=== PATIENT | female | born 1985 | race Caucasian/White ===

== ENCOUNTER 2016-10-22 01:21 | Inpatient (IN) | payer BC ==
[2016-10-22] MEDS ORDERED: Lidocaine 1% 50 ML MDV INJECT PRN (01:37)
[2016-10-22] MEDS ORDERED: Butorphanol 1 MG/ML SDV IVPUSH PRN (01:37)
[2016-10-22] MEDS ORDERED: Sodium Chloride 0.9% 2.5 ML Syringe FLUSH PRN (01:37)
[2016-10-22] MEDS ORDERED: Nalbuphine 10 MG/1 ML Vial IVPUSH PRN ×2 (01:37→08:06)
[2016-10-22] MEDS ORDERED: Water For Irrigation,Sterile 1,000 ML Container IRR PRN (01:37)
[2016-10-22] MEDS ORDERED: Carboprost Tromethamine 250 MCG/1 ML Amp IM PRN (01:37)
[2016-10-22] MEDS ORDERED: Methylergonovine 0.2 MG/1 ML Amp IM PRN (01:37)
[2016-10-22] MEDS ORDERED: Ampicillin 2 GM in Sodium Chloride 0.9% 100 ML IV ONE (01:37)
[2016-10-22] MEDS ORDERED: Sodium Chloride 0.9% 10 ML Syringe FLUSH PRN (01:37)
[2016-10-22] MEDS ORDERED: Misoprostol 200 MCG Tab PO PRN (01:37)
[2016-10-22] MEDS ORDERED: Oxytocin/Lactated Ringers 30 UNIT/500 ML BAG IV SCH (01:45)
[2016-10-22] MEDS: Lactated Ringers 1,000 ML IV SCH ×5 (01:58→18:28)
[2016-10-22] MEDS ORDERED: fentaNYL 100 MCG/2 ML SDV ONE ×3 (02:09→07:38)
[2016-10-22] MEDS ORDERED: Ropivacaine HCl/PF 100 ML ONE (02:09)
--- NOTE | 2016-10-22 02:09 | PCM.PREANE ---
Preanesthetic Assessment - Procedure Proposed Procedure: Epidural Placement - Anesthesia/Transfusion/Family Hx Anesthesia History: No Prior Anesthesia - Review of Systems General: No Symptoms Pulmonary: No Symptoms Cardiovascular: No Symptoms Gastrointestinal: No Symptoms Neurological: No Symptoms Other: Reports: None - Physical Assessment Height: 1.73 m Weight: 86.183 kg ASA Class: 1 Mental Status: Alert & Oriented x3 Dentition: Reports: Normal Dentition ROM/Head Extension: Full Lungs: Clear to Auscultation, Normal Respiratory Effort Cardiovascular: Regular Rate, Regular Rhythm - Allergies Allergies/Adverse Reactions: Allergies Allergy/AdvReac Type Severity Reaction Status Date / Time hydrocodone Allergy Vomiting Verified 10/19/16 04:00 - Acknowledgements Anesthesia Type Planned: Epidural Pt an Appropriate Candidate for the Planned Anesthesia: Yes Alternatives and Risks of Anesthesia Discussed w Pt/Guardian: Yes Pt/Guardian Understands and Agrees with Anesthesia Plan: Yes PreAnesthesia Questionnaire Respiratory History: Reports: Other (See Below) (Reactive airway disease) - CURRENT (IN HOUSE) MEDS Current Meds: Current Medications Butorphanol Tartrate (Stadol) 1 mg IVPUSH Q1H PRN PRN Reason: Pain Carboprost Tromethamine (Hemabate Ds) 250 mcg IM ASDIRECTED PRN PRN Reason: Post Hemorrhage Ampicillin Sodium 1 gm/ Sodium (Chloride) 50 mls @ 100 mls/hr IV Q4H [facility] Lactated Ringer's (Ringers, Lactated) 1,000 mls @ 150 mls/hr IV ASDIRECTED [facility] Last Admin: 10/22/16 01:58 Dose: 150 mls/hr Oxytocin/Lactated Ringer's (Pitocin In Lr 30 Units/500 Ml) 30 unit in 500 mls @ 500 mls/hr IV TITRATE [facility] PRN Reason: 500 MUNITS/MIN Stop: 10/22/16 02:44 Lidocaine HCl (Xylocaine 1%) 50 ml INJECT .ONCE PRN PRN Reason: Laceration repair Methylergonovine Maleate (Methergine) 0.2 mg IM ASDIRECTED PRN PRN Reason: Post Hemorrhage Misoprostol (Cytotec) 200 mcg PO .ONCE PRN PRN Reason: Post Hemorrhage Nalbuphine HCl (Nubain) 10 mg IVPUSH Q1H PRN PRN Reason: Pain (severe 7-10) Stop: 10/22/16 03:38 Sodium Chloride (Saline Flush) 10 ml FLUSH ASDIRECTED PRN PRN Reason: Keep Vein Open Sodium Chloride (Saline Flush) 2.5 ml FLUSH ASDIRECTED PRN PRN Reason: Keep Vein Open Sterile Water (Sterile Water For Irrigation) 1,000 ml IRR ASDIRECTED PRN PRN Reason: delivery Discontinued Medications Ampicillin Sodium 2 gm/ Sodium (Chloride) 100 mls @ 200 mls/hr IV ONETIME ONE Stop: 10/22/16 02:06 Last Admin: 10/22/16 01:58 Dose: 200 mls/hr
--- NOTE | 2016-10-22 02:33 | PCM.LDHP ---
L&D History of Present Illness - General Date of Service: 10/22/16 Admit Problem/Dx: Patient Status Order with Admit Dx/Problem 10/22/16 01:37 Patient Status [ADT] Routine Admission Diagnosis/Problem Admission Diagnosis/Problem Source of Information: Patient History Limitations: Reports: No Limitations - History of Present Illness Improves with: Reports: None Worsens with: Reports: None Associated Symptoms: Reports: N - Related Data Allergies/Adverse Reactions: Allergies Allergy/AdvReac Type Severity Reaction Status Date / Time hydrocodone Allergy Vomiting Verified 10/19/16 04:00 Past Medical History Respiratory History: Reports: Other (See Below) (Reactive airway disease) H&P Review of Systems - Review of Systems: Review Of Systems: See Below General: Reports: No Symptoms HEENT: Reports: No Symptoms Pulmonary: Reports: No Symptoms Cardiovascular: Reports: No Symptoms Gastrointestinal: Reports: No Symptoms Genitourinary: Reports: No Symptoms Musculoskeletal: Reports: No Symptoms Skin: Reports: No Symptoms Psychiatric: Reports: No Symptoms Neurological: Reports: No Symptoms Hematologic/Lymphatic: Reports: No Symptoms Immunologic: Reports: No Symptoms L&D Exam - Exam Exam: See Below - Vital Signs Weight: 86.183 kg - OB Specific Fundal Height In cm: 40 Contraction Intensity: Moderate to Strong Movement: Active Heart Tones: Present Presentation: Vertex - Kumar Score Kumar Score Cervix Position: Anterior Kumar Score Effacement: >80% Kumar Score Dilation: > 5 cm Kumar Score 's Station: -1 ,0 - Exam General: Alert, Oriented HEENT: PERRLA, Conjunctiva Clear, EACs Clear, EOMI, Hearing Intact, Mucosa Moist & [place], Nares Patent, Normal Nasal Septum, Posterior Pharynx Clear, TMs Clear Neck: Supple, Trachea Midline Lungs: Clear to Auscultation, Normal Respiratory Effort Cardiovascular: Regular Rate, Regular Rhythm GI/Abdominal Exam: Normal Bowel Sounds, Soft, Non-Tender, No Organomegaly, No Distention, No Abnormal Bruit, No Mass, Pelvis Stable Rectal Exam: Normal Exam, Normal Rectal Tone Genitourinary: Normal external exam, Normal bimanual exam, Normal speculum exam Back Exam: Normal Inspection, Full Range of Motion Extremities: Normal Inspection, Normal Range of Motion, Non-Tender, No Pedal Edema, Normal Capillary Refill Skin: Warm, Dry, Intact Neurological: Cranial Nerves Intact, Reflexes Equal Bilateral Psychiatric: Alert, Normal Affect, Normal Mood - Patient Data Lab Results Last 24 hrs: Laboratory Results - last 24 hr 10/22/16 Range/Units 01:40 WBC 25.78 H (4.0-11.0) K/uL RBC 3.97 L (4.30-5.90) M/uL Hgb 12.0 (12.0-16.0) g/dL Hct 34.7 L (36.0-46.0) % MCV 87.4 (80.0-98.0) fL MCH 30.2 (27.0-32.0) pg MCHC 34.6 (31.0-37.0) g/dL RDW Std Deviation 40.4 (28.0-62.0) fl RDW Coeff of Carol 13 (11.0-15.0) % Plt Count 222 (150-400) K/uL MPV 10.40 (7.40-12.00) fL Add Manual Diff YES Neutrophils % (Manual) 90 H (48.0-80.0) % Band Neutrophils % 2 % Lymphocytes % (Manual) 3 L (16.0-40.0) % Monocytes % (Manual) 5 (0.0-15.0) % Absolute Seg Neuts 23.2 Band Neutrophils # 0.5 Lymphocytes # (Manual) 0.8 Monocytes # (Manual) 1.3 Result Diagrams: 10/22/16 01:40 Problem List Initiated/Reviewed/Updated: Yes Orders Last 24hrs: Active Orders 24 hr Category Date Time Status Patient Status [ADT] Routine ADT 10/22/16 01:37 Active Heart Tones [RC] CONTINUOUS Care 10/22/16 01:37 Active Non Stress Test [RC] PER UNIT ROUTINE Care 10/22/16 01:37 Active May Shower [RC] ASDIRECTED Care 10/22/16 01:37 Active Notify Provider [RC] PRN Care 10/22/16 01:37 Active Up ad Emelia [RC] ASDIRECTED Care 10/22/16 01:37 Active Vaginal Exam [RC] PRN Care 10/22/16 01:37 Active Vital Signs [RC] PER UNIT ROUTINE Care 10/22/16 01:37 Active TYPE AND SCREEN [BBK] Stat Lab 10/22/16 Ordered Ampicillin 1 gm Med 10/22/16 06:00 Active Sodium Chloride 0.9% [Normal Saline] 50 ml IV Q4H Butorphanol [Stadol] Med 10/22/16 01:37 Active 1 mg IVPUSH Q1H PRN Carboprost Tromethamine [Hemabate DS] Med 10/22/16 01:37 Active 250 mcg IM ASDIRECTED PRN Lactated Ringers [Ringers, Lactated] 1,000 ml Med 10/22/16 01:45 Active IV ASDIRECTED Lidocaine 1% [Xylocaine 1%] Med 10/22/16 01:37 Active 50 ml INJECT .ONCE PRN Methylergonovine [Methergine] Med 10/22/16 01:37 Active 0.2 mg IM ASDIRECTED PRN Misoprostol [Cytotec] Med 10/22/16 01:37 Active 200 mcg PO .ONCE PRN Nalbuphine [Nubain] Med 10/22/16 01:37 Active 10 mg IVPUSH Q1H PRN Oxytocin/Lactated Ringers [Pitocin in LR 30 Units/500 Med 10/22/16 01:45 Active ML] 30 unit in 500 ml IV TITRATE Sodium Chloride 0.9% [Saline Flush] Med 10/22/16 01:37 Active 10 ml FLUSH ASDIRECTED PRN Sodium Chloride 0.9% [Saline Flush] Med 10/22/16 01:37 Active 2.5 ml FLUSH ASDIRECTED PRN Water For Irrigation,Sterile [Sterile Water for Med 10/22/16 01:37 Active Irrigation] 1,000 ml IRR ASDIRECTED PRN Scalp Electrode [WOMSER] Per Unit Routine Oth 10/22/16 01:37 Ordered Peripheral IV Insertion Adult [OM.PC] Routine Oth 10/22/16 01:37 Ordered Resuscitation Status Routine Resus Stat 10/22/16 01:37 Ordered Medication Orders Butorphanol Tartrate (Stadol) 1 mg IVPUSH Q1H PRN PRN Reason: Pain Carboprost Tromethamine (Hemabate Ds) 250 mcg IM ASDIRECTED PRN PRN Reason: Post Hemorrhage Ampicillin Sodium 1 gm/ Sodium (Chloride) 50 mls @ 100 mls/hr IV Q4H [facility] Lactated Ringer's (Ringers, Lactated) 1,000 mls @ 150 mls/hr IV ASDIRECTED [facility] Last Admin: 10/22/16 01:58 Dose: 150 mls/hr Oxytocin/Lactated Ringer's (Pitocin In Lr 30 Units/500 Ml) 30 unit in 500 mls @ 500 mls/hr IV TITRATE [facility] PRN Reason: 500 MUNITS/MIN Stop: 10/22/16 02:44 Lidocaine HCl (Xylocaine 1%) 50 ml INJECT .ONCE PRN PRN Reason: Laceration repair Methylergonovine Maleate (Methergine) 0.2 mg IM ASDIRECTED PRN PRN Reason: Post Hemorrhage Misoprostol (Cytotec) 200 mcg PO .ONCE PRN PRN Reason: Post Hemorrhage Nalbuphine HCl (Nubain) 10 mg IVPUSH Q1H PRN PRN Reason: Pain (severe 7-10) Stop: 10/22/16 03:38 Sodium Chloride (Saline Flush) 10 ml FLUSH ASDIRECTED PRN PRN Reason: Keep Vein Open Sodium Chloride (Saline Flush) 2.5 ml FLUSH ASDIRECTED PRN PRN Reason: Keep Vein Open Sterile Water (Sterile Water For Irrigation) 1,000 ml IRR ASDIRECTED PRN PRN Reason: delivery Assessment/Plan Comment:: Pt have limted prnatal care. she was fellowed by kaylah bolt threader and plannig home delivery .EDC 10/17/16. start laboring on 10/20/16 at 7pm, SROM at midnight at 11.40 of 10/20/16 clear fluid. acording to her bolt threader she start pushing at 5 pm of 10/21/16. CX. 8-9/90/v/-3 the pt in saver pain. Plan to admit, start the pt on antibiotic and after epidural anethesia we will ass the pt farther.
[2016-10-22] MEDS: Ampicillin 1 GM in Sodium Chloride 0.9% 50 ML IV SCH ×3 (06:00→21:54)
[2016-10-22] MEDS ORDERED: Bupivacaine 0.5% 10 ML SDV ONE (06:55)
[2016-10-22] MEDS ORDERED: Citric Acid/Sodium Citrate Solution 30 ML Cup ONE (07:01)
[2016-10-22] MEDS ORDERED: Oxytocin 10 Units/1 ML SDV ONE (07:20)
[2016-10-22] MEDS ORDERED: Ondansetron 4 MG/2 ML SDV ONE (07:20)
[2016-10-22] MEDS ORDERED: Morphine PF 10 MG/10 ML SDV ONE (07:21)
[2016-10-22] MEDS ORDERED: Metoclopramide 10 MG/2 ML SDV ONE (07:27)
[2016-10-22] MEDS ORDERED: ePHEDrine 50 MG/ML SDV ONE (07:28)
[2016-10-22] MEDS ORDERED: Water For Injection, Sterile 20 ML ONE (07:28)
[2016-10-22] MEDS ORDERED: Octyl 2-Cyanoacrylate 1 Tube ONE (07:52)
[2016-10-22] MEDS ORDERED: diphenhydrAMINE 50 MG/ML SDV IVPUSH PRN ×2 (07:55→08:06)
[2016-10-22] MEDS ORDERED: Bisacodyl 10 MG Supp RECTAL PRN (07:55)
[2016-10-22] MEDS ORDERED: Lanolin 100% Cream 7 GM Tube TOP PRN (07:55)
[2016-10-22] MEDS ORDERED: Acetaminophen/oxyCODONE 325-5 MG Tab PO PRN ×2 (07:55)
[2016-10-22] MEDS ORDERED: Ondansetron 4 MG/2 ML SDV IV PRN (07:55)
--- NOTE | 2016-10-22 07:59 | PCM.OPNOTE ---
- General Post-Op/Procedure Note Date of Surgery/Procedure: 10/22/16 Operative Procedure(s): Primary C/Section Pre Op Diagnosis: Term Falire to progress Post-Op Diagnosis: Same Anesthesia Technique: Epidural Primary Surgeon: Ta Arevalo EBL in mLs: 700 Complications: None Condition: Good
[2016-10-22] MEDS ORDERED: Naloxone 0.4 MG/ML Syringe IVPUSH PRN (08:06)
[2016-10-22] MEDS: Ketorolac 30 MG/ML SDV IVPUSH SCH ×3 (08:15→20:01)
--- NOTE | 2016-10-22 08:28 | PCM.POSTAN ---
POST ANESTHESIA ASSESSMENT - MENTAL STATUS Mental Status: Alert, Oriented - RESPIRATORY Respiratory Status: Respiratory Rate WNL, Airway Patent, O2 Saturation Stable - CARDIOVASCULAR CV Status: Pulse Rate WNL, Blood Pressure Stable - GASTROINTESTINAL GI Status: No Symptoms - PAIN Pain Score: 0 - POST OP HYDRATION Hydration Status: Adequate & Stable
--- NOTE | 2016-10-22 09:43 | OR ---
SURGEON: Ta Arevalo MD DATE OF PROCEDURE: 10/22/2016 PREOPERATIVE DIAGNOSIS: Term , failure to progress. POSTOPERATIVE DIAGNOSIS: Term , failure to progress. OPERATION PERFORMED: Primary low transverse section. ACCESS SERVICES LIBRARIAN: OR tech. ANESTHESIA: Epidural, Robert Valdez and Dr. Miguel. ESTIMATED BLOOD LOSS: 700 mL. COMPLICATION: None. FINDINGS: Male fetus. score reported to be 8 and 9. The weight is not available. INDICATION: This patient is 31, she is primigravida, and she had a very limited care. She started with Dr. Peacock in [facility] until 20 weeks and then she started using a playground supervisor. The patient supposedly is to be due on October 17, 2016. She started labor on October 20, 2016. By the time she transferred or she arrived to the hospital with her playground supervisor, she has been in labor for 24 hours, and she was agitated, in severe pain, and she had a prolong rupture membrane in excess of 20 hours. The patient's GBS status is unknown. Upon monitoring, she had regular contractions. heart rate was category 1. She was dilated to 8 cm with a swollen cervix. She has vertex presentation, -3, she had epidural anesthesia, and then the patient would like to labor down try to see if she can achieve a vaginal delivery. I started her on antibiotic and after trial for about 3 to 4 hours, the patient is continued to be in the same position, same dilatation without any descent, a possibility of CPD due to macrosomia is ascertained at this time and a decision made to do a primary low transverse section. PROCEDURE IN DETAIL: The patient was brought to the OR, properly identified. After adequate level of epidural anesthesia, with a Vásquez catheter in the bladder, the patient was prepped and draped in sterile fashion as usual. Low transverse Pfannenstiel skin incision done, Vera's fascia and rectus fascia was opened in direction of the incision. The 2 recti muscles were and peritoneal cavity was entered. Bladder flap was raised in the usual manner pushing the bladder away from the lower uterine segment, low transverse uterine incision done and extended manually with the hand and the fetus was in the vertex presentation and delivered without any problem. The fetus cried immediately. The telegraphic typewriter repairer attended the delivery, Dr. Hurtado, and the score later on reported to be 8 and 9. The placenta delivered spontaneous, complete, and intact and then repair of the lower uterine segment done with 2-0 Vicryl continuous interlocking in 2 layers. Reperitonealization done with 3-0 Vicryl continuous. The peritoneal cavity evacuated completely from all blood and blood clot and closed with 3-0 Vicryl continuous. Then, the rectus fascia was closed with #1 PDS double strand continuous. The Vera's fascia was then closed with 3-0 Vicryl continuous, the skin closed with Insorb stapler and Dermabond. Instrument and sponge count was correct. The patient tolerated the procedure well and went to recovery room in stable general condition. YORDAN / BOLIVAR /[id number]
[2016-10-22] MEDS ORDERED: Diphtheria,Pertussis(Acell),Tetanus Vaccine 0.5 ML Syringe IM ONE (12:00)
[2016-10-22] MEDS: Acetaminophen 1,000 MG in Premix Bag 1 BAG IV SCH ×2 (12:23→18:06)
--- NOTE | 2016-10-22 14:04 | PCM.SN ---
- Free Text/Narrative Note: This morning the patient informed nursing that she is allergic to hydrocodone and oxycodone. The patient believe her reaction to be severe N/V to both of these medications and had some concerns as what she could have for pain. She is currently receiving scheduled Toradol, I have added scheduled Ofirmev 1000mgIV x 2 scheduled doses, and I had nursing give the patient Nubain 5mg IV x 1 earlier for breakthrough pain which she said decreased her pain level significantly. I will have nursing continue Toradol and Ofirmev (x1 more dose) and then will switch to Fentanyl PRN should she require additional pain relief.
[2016-10-22] MEDS: Docusate Sodium 100 MG Cap PO SCH ×2 (20:01→21:55)
[2016-10-23] MEDS: Ketorolac 30 MG/ML SDV IVPUSH SCH ×2 (02:05→08:07)
--- NOTE | 2016-10-23 07:05 | PCM48HPAN ---
Post Anesthesia Note - EVALUATION WITHIN 48HRS OF ANESTHETIC Vital Signs in Normal Range: Yes Patient Participated in Evaluation: Yes Respiratory Function Stable: Yes Airway Patent: Yes Cardiovascular Function Stable: Yes Hydration Status Stable: Yes Pain Control Satisfactory: Yes Nausea and Vomiting Control Satisfactory: Yes Mental Status Recovered: Yes
[2016-10-23] MEDS: Docusate Sodium 100 MG Cap PO SCH ×2 (08:14→20:11)
--- NOTE | 2016-10-23 09:40 | PCM.PNPP ---
- General Info Date of Service: 10/23/16 Functional Status: Reports: Pain Controlled - Review of Systems General: Reports: No Symptoms HEENT: Reports: No Symptoms Pulmonary: Reports: No Symptoms Cardiovascular: Reports: No Symptoms Gastrointestinal: Reports: No Symptoms Genitourinary: Reports: No Symptoms Musculoskeletal: Reports: No Symptoms Skin: Reports: No Symptoms Neurological: Reports: No Symptoms Psychiatric: Reports: No Symptoms - General Info Date of Service: 10/23/16 - Patient Data Vital Signs - Most Recent: Last Vital Signs Temp 36.4 C 10/23/16 07:36 Pulse 86 10/23/16 07:36 Resp 14 10/23/16 07:36 BP 121/74 10/23/16 07:36 Pulse Ox 95 10/23/16 07:36 Weight - Most Recent: 86.183 kg I&O - Last 24 Hours: Intake & Output 10/22/16 10/23/16 10/23/16 22:59 06:59 14:59 Intake Total 1275 1000 Output Total 950 3200 Balance 325 -2200 Lab Results - Last 24 Hours: Laboratory Results - last 24 hr 10/22/16 10/23/16 Range/Units 10:12 04:40 Hgb 8.8 L (12.0-16.0) g/dL Hct 26.8 L (36.0-46.0) % POC Glucose 97 (60-110) mg/dL Med Orders - Current: Current Medications Bisacodyl (Dulcolax) 10 mg RECTAL .ONCE PRN PRN Reason: Constipation Butorphanol Tartrate (Stadol) 1 mg IVPUSH Q1H PRN PRN Reason: Pain Carboprost Tromethamine (Hemabate Ds) 250 mcg IM ASDIRECTED PRN PRN Reason: Post Hemorrhage Diphenhydramine HCl (Benadryl) 25 mg IVPUSH Q6H PRN PRN Reason: Itching or Nausea Docusate Sodium (Colace) 100 mg PO BID [facility] Last Admin: 10/23/16 08:14 Dose: 100 mg Emollient Ointment (Lansinoh Hpa) 0 gm TOP ASDIRECTED PRN PRN Reason: Sore Nipples Lactated Ringer's (Ringers, Lactated) 1,000 mls @ 150 mls/hr IV ASDIRECTED [facility] Last Admin: 10/22/16 06:00 Dose: 150 mls/hr Lactated Ringer's (Ringers, Lactated) 1,000 mls @ 125 mls/hr IV ASDIRECTED [facility] Last Admin: 10/22/16 18:28 Dose: 125 mls/hr Ibuprofen (Motrin) 800 mg PO Q8H PRN PRN Reason: mild pain or fever Lidocaine HCl (Xylocaine 1%) 50 ml INJECT .ONCE PRN PRN Reason: Laceration repair Methylergonovine Maleate (Methergine) 0.2 mg IM ASDIRECTED PRN PRN Reason: Post Hemorrhage Misoprostol (Cytotec) 200 mcg PO .ONCE PRN PRN Reason: Post Hemorrhage Ondansetron HCl (Zofran) 4 mg IV Q4H PRN PRN Reason: Nausea/Vomiting Last Admin: 10/22/16 14:22 Dose: 4 mg Oxycodone/Acetaminophen (Percocet 325-5 Mg) 1 tab PO Q4H PRN PRN Reason: Pain (moderate 4-6) Oxycodone/Acetaminophen (Percocet 325-5 Mg) 2 tab PO Q4H PRN PRN Reason: Pain (moderate 4-6) Sodium Chloride (Saline Flush) 10 ml FLUSH ASDIRECTED PRN PRN Reason: Keep Vein Open Sodium Chloride (Saline Flush) 2.5 ml FLUSH ASDIRECTED PRN PRN Reason: Keep Vein Open Sterile Water (Sterile Water For Irrigation) 1,000 ml IRR ASDIRECTED PRN PRN Reason: delivery Discontinued Medications Bupivacaine HCl (Sensorcaine-Mpf 0.5%) Confirm Administered Dose 20 ml .ROUTE .STK-MED ONE Stop: 10/22/16 06:56 Last Admin: 10/22/16 21:53 Dose: Not Given Citric Acid/Sodium Citrate (Bicitra Solution) Confirm Administered Dose 30 ml .ROUTE .STK-MED ONE Stop: 10/22/16 07:02 Last Admin: 10/22/16 07:05 Dose: 30 ml Diphenhydramine HCl (Benadryl) 25 mg IVPUSH Q4H PRN PRN Reason: Itching Stop: 10/23/16 08:06 Diphtheria/Tetanus/Acell Pertussis (Adacel) 0.5 ml IM .ONCE ONE Stop: 10/22/16 12:01 Ephedrine Sulfate (Ephedrine Sulfate) Confirm Administered Dose 50 mg .ROUTE .STK-MED ONE Stop: 10/22/16 07:29 Fentanyl (Sublimaze) Confirm Administered Dose 100 mcg .ROUTE .STK-MED ONE Stop: 10/22/16 02:10 Last Admin: 10/22/16 04:08 Dose: Not Given Fentanyl (Sublimaze) Confirm Administered Dose 100 mcg .ROUTE .STK-MED ONE Stop: 10/22/16 07:35 Fentanyl (Sublimaze) Confirm Administered Dose 100 mcg .ROUTE .STK-MED ONE Stop: 10/22/16 07:39 Ampicillin Sodium 2 gm/ Sodium (Chloride) 100 mls @ 200 mls/hr IV ONETIME ONE Stop: 10/22/16 02:06 Last Admin: 10/22/16 01:58 Dose: 200 mls/hr Ampicillin Sodium 1 gm/ Sodium (Chloride) 50 mls @ 100 mls/hr IV Q4H [facility] Last Admin: 10/22/16 21:54 Dose: Not Given Oxytocin/Lactated Ringer's (Pitocin In Lr 30 Units/500 Ml) 30 unit in 500 mls @ 500 mls/hr IV TITRATE [facility] PRN Reason: 500 MUNITS/MIN Stop: 10/22/16 02:44 Last Admin: 10/22/16 21:53 Dose: Not Given Ropivacaine (Naropin 0.2%) Confirm Administered Dose 100 mls @ as directed .ROUTE .STK-MED ONE Stop: 10/22/16 02:10 Last Admin: 10/22/16 04:08 Dose: Not Given Sterile Water (Sterile Water For Injection) Confirm Administered Dose 20 mls @ as directed .ROUTE .STK-MED ONE Stop: 10/22/16 07:29 Acetaminophen 1,000 mg/ Premix 100 mls @ 400 mls/hr IV Q6H [facility] Stop: 10/22/16 18:14 Last Admin: 10/22/16 18:06 Dose: 400 mls/hr Ketorolac Tromethamine (Toradol) 30 mg IVPUSH Q6H [facility] Stop: 10/23/16 08:01 Last Admin: 10/23/16 08:07 Dose: 30 mg Metoclopramide HCl (Reglan) Confirm Administered Dose 10 mg .ROUTE .STK-MED ONE Stop: 10/22/16 07:28 Morphine Sulfate (Duramorph Pf) Confirm Administered Dose 10 mg .ROUTE .STK-MED ONE Stop: 10/22/16 07:22 Nalbuphine HCl (Nubain) 10 mg IVPUSH Q1H PRN PRN Reason: Pain (severe 7-10) Stop: 10/22/16 03:38 Nalbuphine HCl (Nubain) 5 mg IVPUSH Q3H PRN PRN Reason: Pruritis Stop: 10/23/16 08:06 Last Admin: 10/23/16 02:33 Dose: 5 mg Naloxone HCl (Narcan) 0.1 mg IVPUSH ONETIME PRN PRN Reason: Respiratory Depression Stop: 10/23/16 08:06 Octyl Cyanoacrylate (Dermabond Advance) Confirm Administered Dose 1 applic .ROUTE .STK-MED ONE Stop: 10/22/16 07:53 Ondansetron HCl (Zofran) Confirm Administered Dose 4 mg .ROUTE .STK-MED ONE Stop: 10/22/16 07:21 Oxytocin (Pitocin) Confirm Administered Dose 20 unit .ROUTE .STK-MED ONE Stop: 10/22/16 07:21 - Infant Interaction Infant Disposition, : in Room with Family Interaction: Holding Feeding: Attempted ; Nursed Fair/Poor Support Person: , Mother - Recovery Exam Fundal Tone: Firm Fundal Level: 1 Fingerbreadths Below Umbilicus Fundal Placement: Midline Lochia Amount: Scant Lochia Color: Rubra/Red Perineum Description: Intact, Minimal Bruising/Swelling Bladder Status: Indwelling Catheter in Place Urinary Elimination: Indwelling Catheter - Exam General: Alert, Oriented HEENT: Pupils Equal Neck: Supple Lungs: Clear to Auscultation, Normal Respiratory Effort Cardiovascular: Regular Rate, Regular Rhythm GI/Abdominal Exam: Normal Bowel Sounds, Soft, Non-Tender, No Organomegaly, No Distention, No Abnormal Bruit, No Mass, Pelvis Stable Extremities: Normal Inspection, Normal Range of Motion, Non-Tender, No Pedal Edema, Normal Capillary Refill Skin: Warm, Dry, Intact Wound/Incisions: Healing Well Neurological: No New Focal Deficit Psy/Mental Status: Alert, Normal Affect, Normal Mood - Problem List Review Problem List Initiated/Reviewed/Updated: Yes - My Orders Last 24 Hours: My Active Orders 10/22/16 09:00 Docusate Sodium [Colace] 100 mg PO BID 10/22/16 Dinner Regular Diet [DIET] 10/23/16 14:00 Ibuprofen [Motrin] 800 mg PO Q8H PRN - Assessment Assessment:: S/P C/section doing well - Plan Plan:: Pt have limted prnatal care. she was fellowed by kaylah agent ticketing gate and plannig home delivery .EDC 10/17/16. start laboring on 10/20/16 at 7pm, SROM at midnight at 11.40 of 10/20/16 clear fluid. acording to her agent ticketing gate she start pushing at 5 pm of 10/21/16. CX. 8-9/90/v/-3 the pt in saver pain. Plan to admit, start the pt on antibiotic and after epidural anethesia we will ass the pt farther.
[2016-10-23] MEDS: Ibuprofen 800 MG Tab PO PRN ×2 (14:11→22:09)
[2016-10-23] MEDS: Acetaminophen 500 MG Tab PO PRN (20:30)
[2016-10-24] MEDS: Acetaminophen 500 MG Tab PO PRN ×2 (02:00→08:05)
[2016-10-24] MEDS: Ibuprofen 800 MG Tab PO PRN (06:23)
[2016-10-24] MEDS: Docusate Sodium 100 MG Cap PO SCH (08:07)
--- NOTE | 2016-10-24 09:27 | PCM.PNPP ---
- General Info Date of Service: 10/24/16 Functional Status: Reports: Pain Controlled - Review of Systems General: Reports: No Symptoms HEENT: Reports: No Symptoms Pulmonary: Reports: No Symptoms Cardiovascular: Reports: No Symptoms Gastrointestinal: Reports: No Symptoms Genitourinary: Reports: No Symptoms Musculoskeletal: Reports: No Symptoms Skin: Reports: No Symptoms Neurological: Reports: No Symptoms Psychiatric: Reports: No Symptoms - General Info Date of Service: 10/24/16 - Patient Data Vital Signs - Most Recent: Last Vital Signs Temp 36.9 C 10/24/16 07:45 Pulse 70 10/24/16 07:45 Resp 16 10/24/16 07:45 BP 127/74 10/24/16 07:45 Pulse Ox 98 10/24/16 07:45 Weight - Most Recent: 86.183 kg Med Orders - Current: Current Medications Acetaminophen (Tylenol Extra Strength) 1,000 mg PO Q6H PRN PRN Reason: Pain (moderate 4-6) Last Admin: 10/24/16 08:05 Dose: 1,000 mg Bisacodyl (Dulcolax) 10 mg RECTAL .ONCE PRN PRN Reason: Constipation Butorphanol Tartrate (Stadol) 1 mg IVPUSH Q1H PRN PRN Reason: Pain Carboprost Tromethamine (Hemabate Ds) 250 mcg IM ASDIRECTED PRN PRN Reason: Post Hemorrhage Diphenhydramine HCl (Benadryl) 25 mg IVPUSH Q6H PRN PRN Reason: Itching or Nausea Docusate Sodium (Colace) 100 mg PO BID [facility] Last Admin: 10/24/16 08:07 Dose: 100 mg Emollient Ointment (Lansinoh Hpa) 0 gm TOP ASDIRECTED PRN PRN Reason: Sore Nipples Last Admin: 10/24/16 01:58 Dose: 1 gm Lactated Ringer's (Ringers, Lactated) 1,000 mls @ 150 mls/hr IV ASDIRECTED [facility] Last Admin: 10/22/16 06:00 Dose: 150 mls/hr Lactated Ringer's (Ringers, Lactated) 1,000 mls @ 125 mls/hr IV ASDIRECTED [facility] Last Admin: 10/22/16 18:28 Dose: 125 mls/hr Ibuprofen (Motrin) 800 mg PO Q8H PRN PRN Reason: mild pain or fever Last Admin: 10/24/16 06:23 Dose: 800 mg Lidocaine HCl (Xylocaine 1%) 50 ml INJECT .ONCE PRN PRN Reason: Laceration repair Methylergonovine Maleate (Methergine) 0.2 mg IM ASDIRECTED PRN PRN Reason: Post Hemorrhage Misoprostol (Cytotec) 200 mcg PO .ONCE PRN PRN Reason: Post Hemorrhage Ondansetron HCl (Zofran) 4 mg IV Q4H PRN PRN Reason: Nausea/Vomiting Last Admin: 10/22/16 14:22 Dose: 4 mg Oxycodone/Acetaminophen (Percocet 325-5 Mg) 1 tab PO Q4H PRN PRN Reason: Pain (moderate 4-6) Oxycodone/Acetaminophen (Percocet 325-5 Mg) 2 tab PO Q4H PRN PRN Reason: Pain (moderate 4-6) Sodium Chloride (Saline Flush) 10 ml FLUSH ASDIRECTED PRN PRN Reason: Keep Vein Open Sodium Chloride (Saline Flush) 2.5 ml FLUSH ASDIRECTED PRN PRN Reason: Keep Vein Open Sterile Water (Sterile Water For Irrigation) 1,000 ml IRR ASDIRECTED PRN PRN Reason: delivery Discontinued Medications Bupivacaine HCl (Sensorcaine-Mpf 0.5%) Confirm Administered Dose 20 ml .ROUTE .STK-MED ONE Stop: 10/22/16 06:56 Last Admin: 10/22/16 21:53 Dose: Not Given Citric Acid/Sodium Citrate (Bicitra Solution) Confirm Administered Dose 30 ml .ROUTE .STK-MED ONE Stop: 10/22/16 07:02 Last Admin: 10/22/16 07:05 Dose: 30 ml Diphenhydramine HCl (Benadryl) 25 mg IVPUSH Q4H PRN PRN Reason: Itching Stop: 10/23/16 08:06 Diphtheria/Tetanus/Acell Pertussis (Adacel) 0.5 ml IM .ONCE ONE Stop: 10/22/16 12:01 Ephedrine Sulfate (Ephedrine Sulfate) Confirm Administered Dose 50 mg .ROUTE .STK-MED ONE Stop: 10/22/16 07:29 Fentanyl (Sublimaze) Confirm Administered Dose 100 mcg .ROUTE .STK-MED ONE Stop: 10/22/16 02:10 Last Admin: 10/22/16 04:08 Dose: Not Given Fentanyl (Sublimaze) Confirm Administered Dose 100 mcg .ROUTE .STK-MED ONE Stop: 10/22/16 07:35 Fentanyl (Sublimaze) Confirm Administered Dose 100 mcg .ROUTE .STK-MED ONE Stop: 10/22/16 07:39 Ampicillin Sodium 2 gm/ Sodium (Chloride) 100 mls @ 200 mls/hr IV ONETIME ONE Stop: 10/22/16 02:06 Last Admin: 10/22/16 01:58 Dose: 200 mls/hr Ampicillin Sodium 1 gm/ Sodium (Chloride) 50 mls @ 100 mls/hr IV Q4H [facility] Last Admin: 10/22/16 21:54 Dose: Not Given Oxytocin/Lactated Ringer's (Pitocin In Lr 30 Units/500 Ml) 30 unit in 500 mls @ 500 mls/hr IV TITRATE [facility] PRN Reason: 500 MUNITS/MIN Stop: 10/22/16 02:44 Last Admin: 10/22/16 21:53 Dose: Not Given Ropivacaine (Naropin 0.2%) Confirm Administered Dose 100 mls @ as directed .ROUTE .STK-MED ONE Stop: 10/22/16 02:10 Last Admin: 10/22/16 04:08 Dose: Not Given Sterile Water (Sterile Water For Injection) Confirm Administered Dose 20 mls @ as directed .ROUTE .STK-MED ONE Stop: 10/22/16 07:29 Acetaminophen 1,000 mg/ Premix 100 mls @ 400 mls/hr IV Q6H [facility] Stop: 10/22/16 18:14 Last Admin: 10/22/16 18:06 Dose: 400 mls/hr Ketorolac Tromethamine (Toradol) 30 mg IVPUSH Q6H [facility] Stop: 10/23/16 08:01 Last Admin: 10/23/16 08:07 Dose: 30 mg Metoclopramide HCl (Reglan) Confirm Administered Dose 10 mg .ROUTE .STK-MED ONE Stop: 10/22/16 07:28 Morphine Sulfate (Duramorph Pf) Confirm Administered Dose 10 mg .ROUTE .STK-MED ONE Stop: 10/22/16 07:22 Nalbuphine HCl (Nubain) 10 mg IVPUSH Q1H PRN PRN Reason: Pain (severe 7-10) Stop: 10/22/16 03:38 Nalbuphine HCl (Nubain) 5 mg IVPUSH Q3H PRN PRN Reason: Pruritis Stop: 10/23/16 08:06 Last Admin: 10/23/16 02:33 Dose: 5 mg Naloxone HCl (Narcan) 0.1 mg IVPUSH ONETIME PRN PRN Reason: Respiratory Depression Stop: 10/23/16 08:06 Octyl Cyanoacrylate (Dermabond Advance) Confirm Administered Dose 1 applic .ROUTE .STK-MED ONE Stop: 10/22/16 07:53 Ondansetron HCl (Zofran) Confirm Administered Dose 4 mg .ROUTE .STK-MED ONE Stop: 10/22/16 07:21 Oxytocin (Pitocin) Confirm Administered Dose 20 unit .ROUTE .STK-MED ONE Stop: 10/22/16 07:21 - Interaction Infant Disposition, : in Room with Family Infant Interaction: Holding Infant Infant Feeding: Attempted ; Nursed Fair/Poor Support Person: , Mother - Recovery Exam Fundal Tone: Firm Fundal Level: 1 Fingerbreadths Below Umbilicus Fundal Placement: Midline Lochia Amount: Scant Lochia Color: Rubra/Red Perineum Description: Intact, Minimal Bruising/Swelling Episiotomy/Laceration: None Bladder Status: Voiding Urinary Elimination: Voided - Exam General: Alert, Oriented HEENT: Pupils Equal Neck: Supple Lungs: Clear to Auscultation, Normal Respiratory Effort Cardiovascular: Regular Rate, Regular Rhythm GI/Abdominal Exam: Normal Bowel Sounds, Soft, Non-Tender, No Organomegaly, No Distention, No Abnormal Bruit, No Mass, Pelvis Stable Extremities: Normal Inspection, Normal Range of Motion, Non-Tender, No Pedal Edema, Normal Capillary Refill Skin: Warm, Dry, Intact Wound/Incisions: Healing Well Neurological: No New Focal Deficit Psy/Mental Status: Alert, Normal Affect, Normal Mood - Problem List Review Problem List Initiated/Reviewed/Updated: Yes - My Orders Last 24 Hours: My Active Orders 10/23/16 14:00 Ibuprofen [Motrin] 800 mg PO Q8H PRN 10/23/16 15:08 Acetaminophen [Tylenol Extra Strength] 1,000 mg PO Q6H PRN - Assessment Assessment:: S/P C/section doing well - Plan Plan:: Pt have limted prnatal care. she was fellowed by kaylah hedge fund trader and plannig home delivery .EDC 10/17/16. start laboring on 10/20/16 at 7pm, SROM at midnight at 11.40 of 10/20/16 clear fluid. acording to her hedge fund trader she start pushing at 5 pm of 10/21/16. CX. 8-9/90/v/-3 the pt in saver pain. Plan to admit, start the pt on antibiotic and after epidural anethesia we will ass the pt farther.
[2016-10-24] MEDS ORDERED: Diphtheria,Pertussis(Acell),Tetanus Vaccine 0.5 ML Syringe IM ONE (11:45)
[2016-10-24 14:46] VITALS: BP 124/72
== END 2016-10-24 14:40 | disposition home or self-care (01) | DRG 540 ==
LOC: MW.OBCHECK 01:21 → MW.OB 01:23 → MW.OBCHECK 01:37 → MW.OB 01:37 → OBSVTOIN 07:32 → MW.OB 11:08
PROVIDERS: ADMIT Obstetrics & Gynecology; ATTEND Obstetrics & Gynecology
PROC: 10D00Z1 Extraction of Products of Conception, Low, Open Approach (ICD-10-PCS; principal; 2016-10-22)
PROC: 00HU33Z Insertion of Infusion Device into Spinal Canal, Percutaneous Approach (ICD-10-PCS; 2016-10-22)
PROC: 3E0234Z Introduction of Serum, Toxoid and Vaccine into Muscle, Percutaneous Approach (ICD-10-PCS; 2016-10-24)
DX: O32.4XX0 Maternal care for high head at term, not applicable or unspecified (principal); O42.02 Full-term premature rupture of membranes, onset of labor within 24 hours of rupture; O09.33 Supervision of pregnancy with insufficient antenatal care, third trimester; Z3A.40 40 weeks gestation of pregnancy; Z37.0 Single live birth; Z23 Encounter for immunization; Z88.8 Allergy status to other drugs, medicaments and biological substances
CPT/HCPCS: 01967; 01968; 36415; 59025; 82962; 85014; 85018; 85025; 85027; 86850; 86900; 86901; 90715; A9270-GY; J0290; J1885; J2270; J2300; J2405; J2590; J2765; J2795; J3010; J7030; J7050; J7120

== ENCOUNTER 2018-12-13 05:14 | Inpatient (IN) | payer BC ==
[2018-12-13] MEDS ORDERED: ceFAZolin 2 GM in Premix Bag 1 BAG IV ONE (05:26)
[2018-12-13] MEDS ORDERED: Sodium Chloride 0.9% 2.5 ML Syringe FLUSH PRN (05:26)
[2018-12-13] MEDS ORDERED: Sodium Chloride 0.9% 10 ML Syringe FLUSH PRN (05:26)
[2018-12-13] MEDS ORDERED: Sodium Chloride 0.9% 10 ML SDV IV PRN (05:26)
[2018-12-13] MEDS ORDERED: Citric Acid/Sodium Citrate Solution 30 ML Cup PO ONE (05:26)
[2018-12-13] MEDS ORDERED: Oxytocin/0.9 % Sodium Chloride 30 UNIT/500 ML BAG IV SCH (05:30)
[2018-12-13] MEDS: Lactated Ringers 1,000 ML IV SCH ×3 (06:14→08:00)
[2018-12-13] MEDS ORDERED: Morphine PF 10 MG/10 ML SDV ONE (07:27)
[2018-12-13] MEDS ORDERED: Octyl 2-Cyanoacrylate 1 Tube ONE (07:33)
[2018-12-13] MEDS ORDERED: Oxytocin 10 Units/1 ML SDV ONE (07:53)
[2018-12-13] MEDS ORDERED: Phenylephrine/Normal Saline 100 MCG/ML 10 ML Syringe ONE (07:53)
[2018-12-13] MEDS ORDERED: Ondansetron 4 MG/2 ML SDV ONE (07:53)
[2018-12-13] MEDS ORDERED: ceFAZolin/Dextrose,Iso-Osmotic 2 GM/50 ML Duplex Bag IV ONE (07:54)
[2018-12-13] MEDS ORDERED: fentaNYL 100 MCG/2 ML SDV IVPUSH PRN (07:54)
[2018-12-13] MEDS ORDERED: Acetaminophen/oxyCODONE 325-5 MG Tab PO PRN (07:54)
--- NOTE | 2018-12-13 07:54 | PCM.PREANE ---
Preanesthetic Assessment - Anesthesia/Transfusion/Family Hx Anesthesia History: Prior Anesthesia Without Reaction Family History of Anesthesia Reaction: No Transfusion History: No Prior Transfusion(s) - Review of Systems General: No Symptoms Pulmonary: No Symptoms Cardiovascular: No Symptoms Gastrointestinal: No Symptoms Neurological: No Symptoms Other: Reports: None - Physical Assessment NPO Status Date: 12/12/18 Height: 5 ft 9 in Weight: 90.265 kg ASA Class: 2 Mental Status: Alert & Oriented x3 Airway Class: Mallampati = 2 Dentition: Reports: Normal Dentition ROM/Head Extension: Full Lungs: Clear to Auscultation, Normal Respiratory Effort Cardiovascular: Regular Rate, Regular Rhythm - Lab Values: Laboratory Last Values WBC 13.49 K/uL (4.0-11.0) H 12/13/18 06:12 RBC 4.19 M/uL (4.30-5.90) L 12/13/18 06:12 Hgb 12.2 g/dL (12.0-16.0) 12/13/18 06:12 Hct 37.4 % (36.0-46.0) 12/13/18 06:12 MCV 89.3 fL (80.0-98.0) 12/13/18 06:12 MCH 29.1 pg (27.0-32.0) 12/13/18 06:12 MCHC 32.6 g/dL (31.0-37.0) 12/13/18 06:12 RDW Std Deviation 44.2 fl (28.0-62.0) 12/13/18 06:12 RDW Coeff of Carol 14 % (11.0-15.0) 12/13/18 06:12 Plt Count 268 K/uL (150-400) 12/13/18 06:12 MPV 10.80 fL (7.40-12.00) 12/13/18 06:12 Nucleated RBC % 0.0 /100WBC 12/13/18 06:12 Nucleated RBCs # 0 K/uL 12/13/18 06:12 - Allergies Allergies/Adverse Reactions: Allergies Allergy/AdvReac Type Severity Reaction Status Date / Time hydrocodone Allergy Nausea and Verified 12/10/18 14:46 Vomiting oxycodone Allergy Nausea and Verified 12/10/18 14:46 Vomiting - Anesthesia Plan Pre-Op Medication Ordered: Antacids - Acknowledgements Anesthesia Type Planned: Spinal Pt an Appropriate Candidate for the Planned Anesthesia: Yes Alternatives and Risks of Anesthesia Discussed w Pt/Guardian: Yes Pt/Guardian Understands and Agrees with Anesthesia Plan: Yes Additional Comments: previous c section 2 yrs ago with labor epidural used for PLAN: spinal with duramorph PreAnesthesia Questionnaire HEENT History: Reports: None Cardiovascular History: Reports: None Respiratory History: Reports: Asthma, Other (See Below) Other Respiratory History: reactive airway disease, has prescribed inhaler Gastrointestinal History: Reports: Other (See Below) Other Gastrointestinal History: occasional heartburn with Genitourinary History: Reports: None 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: Musculoskeletal History: Reports: Fracture, RA Other Musculoskeletal History: hx fx wrist Neurological History: Reports: Migraines Psychiatric History: Reports: None Endocrine/Metabolic History: Reports: None Hematologic History: Reports: None Immunologic History: Reports: None Oncologic (Cancer) History: Reports: None Dermatologic History: Reports: None - Past Surgical History Head Surgeries/Procedures: Reports: None HEENT Surgical History: Reports: None Cardiovascular Surgical History: Reports: None Respiratory Surgical History: Reports: None GI Surgical History: Reports: None Female Surgical History: Reports: Section Endocrine Surgical History: Reports: None Neurological Surgical History: Reports: None Musculoskeletal Surgical History: Reports: Arthroscopic Knee, Other (See Below) Other Musculoskeletal Surgeries/Procedures:: knee arthroscopy Oncologic Surgical History: Reports: None Dermatological Surgical History: Reports: None - SUBSTANCE USE Smoking Status *Q: Never Smoker Recreational Drug Use History: No - HOME MEDS Home Medications: Home Meds Albuterol Sulfate [Albuterol Sulfate Hfa] 1 - 2 puff INH ASDIRECTED PRN [History] PNV95/Ferrous Fumarate/FA [ Vitamin Tablet] 1 tab PO DAILY 12/10/18 [ History] - CURRENT (IN HOUSE) MEDS Current Meds: Current Medications Lactated Ringer's (Ringers, Lactated) 1,000 mls @ 500 mls/hr IV BOLUS VALDO Last Admin: 12/13/18 06:55 Dose: 500 mls/hr Oxytocin/Sodium Chloride (Oxytocin 30 Unit/500 Ml-Ns) 30 unit in 500 mls @ 250 mls/hr IV TITRATE VALDO Sodium Chloride (Saline Flush) 10 ml FLUSH ASDIRECTED PRN PRN Reason: Keep Vein Open Sodium Chloride (Saline Flush) 2.5 ml FLUSH ASDIRECTED PRN PRN Reason: Keep Vein Open Sodium Chloride (Normal Saline) 10 ml IV ASDIRECTED PRN PRN Reason: IV Use Discontinued Medications Citric Acid/Sodium Citrate (Bicitra Solution) 30 ml PO ONETIME ONE Stop: 12/13/18 05:27 Cefazolin Sodium/Dextrose 2 gm (/ Premix) 50 mls @ 100 mls/hr IV ONETIME ONE Stop: 12/13/18 05:55 Morphine Sulfate (Duramorph Pf) Confirm Administered Dose 10 mg .ROUTE .STK-MED ONE Stop: 12/13/18 07:28 Octyl Cyanoacrylate (Dermabond Advance) Confirm Administered Dose 1 applic .ROUTE .STK-MED ONE Stop: 12/13/18 07:34
[2018-12-13] MEDS ORDERED: Nalbuphine 10 MG/1 ML Vial IVPUSH PRN (07:55)
[2018-12-13] MEDS ORDERED: Citric Acid/Sodium Citrate Solution 30 ML Cup ONE (07:58)
--- NOTE | 2018-12-13 08:01 | PCM.LDHP ---
L&D History of Present Illness - General Date of Service: 12/13/18 Admit Problem/Dx: Patient Status Order with Admit Dx/Problem 12/13/18 05:26 Patient Status [ADT] Routine Admission Diagnosis/Problem Admission Diagnosis/Problem Source of Information: Patient History Limitations: Reports: No Limitations - History of Present Illness Improves with: Reports: None Worsens with: Reports: None Associated Symptoms: Reports: N - Related Data Allergies/Adverse Reactions: Allergies Allergy/AdvReac Type Severity Reaction Status Date / Time hydrocodone Allergy Nausea and Verified 12/10/18 14:46 Vomiting oxycodone Allergy Nausea and Verified 12/10/18 14:46 Vomiting Home Medications: Home Meds Albuterol Sulfate [Albuterol Sulfate Hfa] 1 - 2 puff INH ASDIRECTED PRN [History] PNV95/Ferrous Fumarate/FA [ Vitamin Tablet] 1 tab PO DAILY 12/10/18 [ History] Past Medical History HEENT History: Reports: None Cardiovascular History: Reports: None Respiratory History: Reports: Asthma, Other (See Below) Other Respiratory History: reactive airway disease, has prescribed inhaler Gastrointestinal History: Reports: Other (See Below) Other Gastrointestinal History: occasional heartburn with Genitourinary History: Reports: None 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: Musculoskeletal History: Reports: Fracture, RA Other Musculoskeletal History: hx fx wrist Neurological History: Reports: Migraines Psychiatric History: Reports: None Endocrine/Metabolic History: Reports: None Hematologic History: Reports: None Immunologic History: Reports: None Oncologic (Cancer) History: Reports: None Dermatologic History: Reports: None - Past Surgical History Head Surgeries/Procedures: Reports: None HEENT Surgical History: Reports: None Cardiovascular Surgical History: Reports: None Respiratory Surgical History: Reports: None GI Surgical History: Reports: None Female Surgical History: Reports: Section Endocrine Surgical History: Reports: None Neurological Surgical History: Reports: None Musculoskeletal Surgical History: Reports: Arthroscopic Knee, Other (See Below) Other Musculoskeletal Surgeries/Procedures:: knee arthroscopy Oncologic Surgical History: Reports: None Dermatological Surgical History: Reports: None Social & Family History - Family History Family Medical History: Noncontributory OBGYN: Reports: Neurological: Reports: MS Oncologic: Reports: Breast - Tobacco Use Smoking Status *Q: Never Smoker - Caffeine Use Caffeine Use: Reports: None - Recreational Drug Use Recreational Drug Use: No Drug Use in Last 12 Months: No H&P Review of Systems - Review of Systems: Review Of Systems: See Below General: Reports: No Symptoms HEENT: Reports: No Symptoms Pulmonary: Reports: No Symptoms Cardiovascular: Reports: No Symptoms Gastrointestinal: Reports: No Symptoms Genitourinary: Reports: No Symptoms Musculoskeletal: Reports: No Symptoms Skin: Reports: No Symptoms Psychiatric: Reports: No Symptoms Neurological: Reports: No Symptoms Hematologic/Lymphatic: Reports: No Symptoms Immunologic: Reports: No Symptoms L&D Exam - Exam Exam: See Below - Vital Signs Weight: 90.265 kg - OB Specific Fundal Height In cm: 38 Contraction Intensity: Mild Movement: Active Heart Tones: Present Presentation: Vertex - Kumar Score Kumar Score Cervix Position: Midposition Kumar Score Consistency: Soft Kumar Score Effacement: 31-50% Kumar Score Dilation: Closed Kumar Score 's Station: -3 Kumar Score Total: 4 - Exam General: Alert, Oriented HEENT: PERRLA, Conjunctiva Clear, EACs Clear, EOMI, Hearing Intact, Mucosa Moist & Bulger, Nares Patent, Normal Nasal Septum, Posterior Pharynx Clear, TMs Clear Neck: Supple, Trachea Midline Lungs: Clear to Auscultation, Normal Respiratory Effort Cardiovascular: Regular Rate, Regular Rhythm GI/Abdominal Exam: Normal Bowel Sounds, Soft, Non-Tender, No Organomegaly, No Distention, No Abnormal Bruit, No Mass, Pelvis Stable Rectal Exam: Normal Exam, Normal Rectal Tone Genitourinary: Normal external exam, Normal bimanual exam, Normal speculum exam Back Exam: Normal Inspection, Full Range of Motion Extremities: Normal Inspection, Normal Range of Motion, Non-Tender, No Pedal Edema, Normal Capillary Refill Skin: Warm, Dry, Intact Neurological: Cranial Nerves Intact, Reflexes Equal Bilateral Psychiatric: Alert, Normal Affect, Normal Mood - Patient Data Lab Results Last 24 hrs: Laboratory Results - last 24 hr 12/13/18 Range/Units 06:12 WBC 13.49 H (4.0-11.0) K/uL RBC 4.19 L (4.30-5.90) M/uL Hgb 12.2 (12.0-16.0) g/dL Hct 37.4 (36.0-46.0) % MCV 89.3 (80.0-98.0) fL MCH 29.1 (27.0-32.0) pg MCHC 32.6 (31.0-37.0) g/dL RDW Std Deviation 44.2 (28.0-62.0) fl RDW Coeff of Carol 14 (11.0-15.0) % Plt Count 268 (150-400) K/uL MPV 10.80 (7.40-12.00) fL Nucleated RBC % 0.0 /100WBC Nucleated RBCs # 0 K/uL Result Diagrams: 12/13/18 06:12 Problem List Initiated/Reviewed/Updated: Yes Orders Last 24hrs: Active Orders 24 hr Category Date Time Status Patient Status [ADT] Routine ADT 12/13/18 05:26 Active Bradycardia-Neuroaxis [employer] [RC] ROUTINE Care 12/13/18 07:54 Active Non Stress Test [RC] PER UNIT ROUTINE Care 12/13/18 05:26 Active Hypertension-Neuroaxis [employer] [RC] ROUTINE Care 12/13/18 07:54 Active Hypotension-Neuroaxis [employer] [RC] ROUTINE Care 12/13/18 07:54 Active Notify Provider Vital Signs [RC] PRN Care 12/13/18 05:31 Active Oxygen Therapy [RC] PER UNIT ROUTINE Care 12/13/18 07:55 Active Procedure Site Prep Instruct [RC] ASDIRECTED Care 12/13/18 05:26 Active Up ad Emelia [RC] ASDIRECTED Care 12/13/18 05:26 Active Verify Patient Consent Obtain [RC] ASDIRECTED Care 12/13/18 05:26 Active Vital Signs [RC] PER UNIT ROUTINE Care 12/13/18 05:26 Active Vital Signs [RC] Q1H Care 12/13/18 07:55 Active TYPE AND SCREEN [BBK] Routine Lab 12/13/18 06:12 Received Acetaminophen/oxyCODONE [Percocet 325-5 MG] Med 12/13/18 07:54 Ordered 1 tab PO ONETIME PRN Lactated Ringers [Ringers, Lactated] 1,000 ml Med 12/13/18 05:30 Active IV BOLUS Nalbuphine [Nubain] Med 12/13/18 07:55 Ordered 2.5 mg IVPUSH Q3H PRN Oxytocin/0.9 % Sodium Chloride [Oxytocin 30 Unit/500 ML Med 12/13/18 05:30 Active -NS] 30 unit in 500 ml IV TITRATE Sodium Chloride 0.9% [Normal Saline] Med 12/13/18 05:26 Active 10 ml IV ASDIRECTED PRN Sodium Chloride 0.9% [Saline Flush] Med 12/13/18 05:26 Active 10 ml FLUSH ASDIRECTED PRN Sodium Chloride 0.9% [Saline Flush] Med 12/13/18 05:26 Active 2.5 ml FLUSH ASDIRECTED PRN fentaNYL [Sublimaze] Med 12/13/18 07:54 Ordered 50 mcg IVPUSH Q5M PRN AN Neuroaxis Duramorph Precaution Reflex [OM.PC] PER Oth 12/13/18 08:00 Ordered UNIT ROUTINE AN Neuroaxis Duramorph Precaution Reflex [OM.PC] PER Oth 12/14/18 08:00 Ordered UNIT ROUTINE Peripheral IV Insertion Adult [OM.PC] Routine Oth 12/13/18 05:26 Ordered Schedule Procedure [COMM] Per Unit Routine Oth 12/13/18 05:26 Ordered Resuscitation Status Routine Resus Stat 12/13/18 05:26 Ordered Medication Orders Fentanyl (Sublimaze) 50 mcg IVPUSH Q5M PRN PRN Reason: Pain (severe 7-10) Stop: 12/14/18 07:55 Lactated Ringer's (Ringers, Lactated) 1,000 mls @ 500 mls/hr IV BOLUS VALDO Last Admin: 12/13/18 06:55 Dose: 500 mls/hr Infusion: 12/13/18 06:55 Dose: 500 mls/hr Admin: 12/13/18 06:14 Dose: 500 mls/hr Oxytocin/Sodium Chloride (Oxytocin 30 Unit/500 Ml-Ns) 30 unit in 500 mls @ 250 mls/hr IV TITRATE VALDO Nalbuphine HCl (Nubain) 2.5 mg IVPUSH Q3H PRN PRN Reason: Pruritis Stop: 12/14/18 07:55 Oxycodone/Acetaminophen (Percocet 325-5 Mg) 1 tab PO ONETIME PRN PRN Reason: Pain (moderate 4-6) Sodium Chloride (Saline Flush) 10 ml FLUSH ASDIRECTED PRN PRN Reason: Keep Vein Open Sodium Chloride (Saline Flush) 2.5 ml FLUSH ASDIRECTED PRN PRN Reason: Keep Vein Open Sodium Chloride (Normal Saline) 10 ml IV ASDIRECTED PRN PRN Reason: IV Use Assessment/Plan Comment:: Term admitted for elective repeat C/section.
[2018-12-13] MEDS ORDERED: fentaNYL 100 MCG/2 ML SDV ONE (08:34)
[2018-12-13] MEDS ORDERED: Ketorolac 30 MG/ML SDV ONE (08:38)
[2018-12-13] MEDS ORDERED: Bisacodyl 10 MG Supp RECTAL PRN (08:42)
[2018-12-13] MEDS ORDERED: diphenhydrAMINE 50 MG/ML SDV IVPUSH PRN (08:42)
[2018-12-13] MEDS ORDERED: Lanolin 100% Cream 7 GM Tube TOP PRN (08:42)
[2018-12-13] MEDS ORDERED: Lactated Ringers 1,000 ML IV SCH (08:45)
--- NOTE | 2018-12-13 08:47 | PCM.OPNOTE ---
- General Post-Op/Procedure Note Date of Surgery/Procedure: 12/13/18 Operative Procedure(s): Repeat C/Section Pre Op Diagnosis: IUP term previous C/section Post-Op Diagnosis: Same Anesthesia Technique: Spinal EBL in mLs: 600 Complications: None Condition: Good
--- NOTE | 2018-12-13 09:44 | PCM.POSTAN ---
POST ANESTHESIA ASSESSMENT - MENTAL STATUS Mental Status: Alert, Oriented - VITAL SIGNS Vital Signs: Last Vital Signs Temp 36.8 C 12/13/18 08:59 Pulse 77 12/13/18 09:29 Resp 11 L 12/13/18 09:29 BP 119/74 12/13/18 09:29 Pulse Ox 97 12/13/18 09:29 - RESPIRATORY Respiratory Status: Respiratory Rate WNL, Airway Patent, O2 Saturation Stable - CARDIOVASCULAR CV Status: Pulse Rate WNL, Blood Pressure Stable - GASTROINTESTINAL GI Status: No Symptoms - PAIN Pain Score: 3 - POST OP HYDRATION Hydration Status: Adequate & Stable
[2018-12-13] MEDS: Ketorolac 30 MG/ML SDV IVPUSH SCH ×3 (10:16→20:38)
[2018-12-13] MEDS: Docusate Sodium 100 MG Cap PO SCH ×2 (10:17→20:38)
[2018-12-13] MEDS ORDERED: HYDROmorphone 1 MG/ML Syringe IVPUSH PRN (11:14)
[2018-12-13] MEDS: HYDROmorphone 2 MG/ML Syringe IVPUSH PRN ×2 (11:37→17:56)
--- NOTE | 2018-12-13 15:04 | OR ---
SURGEON: Ta Arevalo MD DATE OF PROCEDURE: PREOPERATIVE DIAGNOSES: Intrauterine term, previous section. POSTOPERATIVE DIAGNOSES: Intrauterine term, previous section. OPERATION PERFORMED: Repeat low-transverse section. PRIMARY SURGEON: Ta Arevalo MD. CONGREGATIONAL CARE PASTOR: Krista Harris [place] bobo. ANESTHESIA: Spinal. ESTIMATED BLOOD LOSS: 600 mL. COMPLICATIONS: None. FINDINGS: Male fetus. score reported to be 8 and 9. The weight is not available. INDICATION FOR SURGERY: This patient is 33, she had previous section within the last 18 months. She is term. She is admitted for elective repeat section. PROCEDURE IN DETAIL: The patient was brought to the OR, properly identified, and after adequate level of spinal anesthesia with a Vásquez catheter in the bladder, the patient was prepped and draped in sterile fashion as usual. Low transverse Pfannenstiel skin incision was done through the old scar and the Vera fascia and rectus fascia were opened in direction of the incision. The 2 recti muscles were and peritoneal cavity was entered. Bladder flap was raised in the usual manner pushing the bladder away from the lower uterine segment. Low transverse uterine incision was done and extended manually with the hand and fetus was delivered and cried immediately, handed to the resuscitating team. The score later on reported at 8 and 9. The weight is not available. The placenta delivered spontaneous, complete, and intact, and repair of the lower uterine segment done with 2-0 Vicryl continuous interlocking in 2 layers. Inspection of the lower uterine segment shows no bleeding, no oozing. Reperitonealization of the lower uterine segment done with 3-0 Vicryl continuous and then the peritoneal cavity is evacuated completely from all blood and blood clot and closed with 3-0 Vicryl continuous. The rectus fascia was closed with #1 PDS continuous. Vera fascia with 3-0 Vicryl continuous and the skin closed with 3-0 Vicryl on a Donnie needle in a subcuticular fashion with Dermabond. Instrument and sponge count were correct. The patient tolerated the procedure well, went to recovery room in stable general condition. YORDAN / BOLIVAR /[id number]
[2018-12-13] MEDS: Ondansetron 4 MG/2 ML SDV IVPUSH PRN (18:01)
[2018-12-14] MEDS: Ketorolac 30 MG/ML SDV IVPUSH SCH ×2 (02:39→08:42)
[2018-12-14] MEDS: Ondansetron 4 MG/2 ML SDV IVPUSH PRN (05:17)
[2018-12-14] MEDS: HYDROmorphone 2 MG/ML Syringe IVPUSH PRN (05:23)
--- NOTE | 2018-12-14 07:00 | PCM48HPAN ---
Post Anesthesia Note - EVALUATION WITHIN 48HRS OF ANESTHETIC Vital Signs in Normal Range: Yes Patient Participated in Evaluation: Yes Respiratory Function Stable: Yes Airway Patent: Yes Cardiovascular Function Stable: Yes Hydration Status Stable: Yes Pain Control Satisfactory: Yes Nausea and Vomiting Control Satisfactory: Yes Mental Status Recovered: Yes Vital Signs: Last Vital Signs Temp 98.1 F 12/14/18 04:40 Pulse 89 12/14/18 05:30 Resp 16 12/14/18 05:30 BP 110/65 12/14/18 04:40 Pulse Ox 98 12/14/18 05:30
[2018-12-14] MEDS: Docusate Sodium 100 MG Cap PO SCH ×2 (08:43→20:51)
[2018-12-14] MEDS: HYDROmorphone 2 MG Tab PO PRN ×4 (12:56→23:33)
[2018-12-14] MEDS: Ibuprofen 800 MG Tab PO PRN ×2 (15:31→23:32)
[2018-12-14] MEDS ORDERED: Morphine 10 MG/ML Syringe IM ONE (22:50)
[2018-12-15] MEDS: HYDROmorphone 2 MG Tab PO PRN ×3 (02:25→08:21)
[2018-12-15] MEDS: Docusate Sodium 100 MG Cap PO SCH (08:18)
[2018-12-15] MEDS: Ibuprofen 800 MG Tab PO PRN ×2 (08:18→16:31)
--- NOTE | 2018-12-15 09:43 | PCM.DCSUM1 ---
Discharge Summary - Hospital Course Diagnosis: Stroke: No - Discharge Data Discharge Date: 12/15/18 Discharge Disposition: Home, Self-Care 01 Condition: Good - Referral to Home Health Primary Care Physician: PCP None - Patient Summary/Data Operative Procedure(s) Performed: Repeat C/Section - Patient Instructions Diet: Usual Diet as Tolerated Activity: As Tolerated Driving: Do Not Drive Showering/Bathing: May Shower - Discharge Plan Home Medications: Home Meds Albuterol Sulfate [Albuterol Sulfate Hfa] 1 - 2 puff INH ASDIRECTED PRN [History] PNV95/Ferrous Fumarate/FA [ Vitamin Tablet] 1 tab PO DAILY 12/10/18 [ History] Referrals: [facility] [Outside] Ta Arevalo MD [Physician] - (1 week- December 21@ 3:00pm w/ Dr. Arevalo 6 week- January 23@ 1:30pm w/ Dr. Arevalo ) - Discharge Summary/Plan Comment DC Time >30 min.: Yes - General Info Date of Service: 12/15/18 Functional Status: Reports: Pain Controlled - Review of Systems General: Reports: No Symptoms HEENT: Reports: No Symptoms Pulmonary: Reports: No Symptoms Cardiovascular: Reports: No Symptoms Gastrointestinal: Reports: No Symptoms Genitourinary: Reports: No Symptoms Musculoskeletal: Reports: No Symptoms Skin: Reports: No Symptoms Neurological: Reports: No Symptoms Psychiatric: Reports: No Symptoms - Patient Data Vitals - Most Recent: Last Vital Signs Temp 36.7 C 12/15/18 05:30 Pulse 88 12/15/18 05:30 Resp 16 12/15/18 05:30 BP 121/64 12/15/18 05:30 Pulse Ox 97 12/15/18 05:30 Weight - Most Recent: 90.265 kg Med Orders - Current: Current Medications Bisacodyl (Dulcolax) 10 mg RECTAL ONETIME PRN PRN Reason: Constipation Diphenhydramine HCl (Benadryl) 25 mg IVPUSH Q6H PRN PRN Reason: Itching or Nausea Last Admin: 12/13/18 12:40 Dose: 25 mg Docusate Sodium (Colace) 100 mg PO BID VALDO Last Admin: 12/15/18 08:18 Dose: 100 mg Emollient Ointment (Lansinoh Hpa) 0 gm TOP ASDIRECTED PRN PRN Reason: Sore Nipples Hydromorphone HCl (Dilaudid) 2 mg PO Q3H PRN PRN Reason: Pain (moderate 4-6) Last Admin: 12/15/18 08:21 Dose: 2 mg Hydromorphone HCl (Dilaudid) 1 mg IVPUSH Q2H PRN PRN Reason: Pain (severe 7-10) Last Admin: 12/14/18 05:23 Dose: 1 mg Lactated Ringer's (Ringers, Lactated) 1,000 mls @ 500 mls/hr IV BOLUS VALDO Last Admin: 12/13/18 08:00 Dose: 999 mls/hr Oxytocin/Sodium Chloride (Oxytocin 30 Unit/500 Ml-Ns) 30 unit in 500 mls @ 250 mls/hr IV TITRATE VALDO Lactated Ringer's (Ringers, Lactated) 1,000 mls @ 125 mls/hr IV ASDIRECTED VALDO Ibuprofen (Motrin) 800 mg PO Q8H PRN PRN Reason: mild pain or fever Last Admin: 12/15/18 08:18 Dose: 800 mg Ondansetron HCl (Zofran) 4 mg IVPUSH Q6H PRN PRN Reason: Nausea/Vomiting Last Admin: 12/14/18 05:17 Dose: 4 mg Oxycodone/Acetaminophen (Percocet 325-5 Mg) 1 tab PO ONETIME PRN PRN Reason: Pain (moderate 4-6) Sodium Chloride (Saline Flush) 10 ml FLUSH ASDIRECTED PRN PRN Reason: Keep Vein Open Sodium Chloride (Saline Flush) 2.5 ml FLUSH ASDIRECTED PRN PRN Reason: Keep Vein Open Sodium Chloride (Normal Saline) 10 ml IV ASDIRECTED PRN PRN Reason: IV Use Discontinued Medications Cefazolin Sodium/Dextrose (Ancef) Confirm Administered Dose 2 gm IV .STK-MED ONE Stop: 12/13/18 07:55 Citric Acid/Sodium Citrate (Bicitra Solution) 30 ml PO ONETIME ONE Stop: 12/13/18 05:27 Last Admin: 12/13/18 08:01 Dose: 30 ml Citric Acid/Sodium Citrate (Bicitra Solution) Confirm Administered Dose 30 ml .ROUTE .STK-MED ONE Stop: 12/13/18 07:59 Last Admin: 12/13/18 15:40 Dose: Not Given Fentanyl (Sublimaze) 50 mcg IVPUSH Q5M PRN PRN Reason: Pain (severe 7-10) Stop: 12/14/18 07:55 Last Admin: 12/13/18 09:09 Dose: 50 mcg Fentanyl (Sublimaze) Confirm Administered Dose 100 mcg .ROUTE .STK-MED ONE Stop: 12/13/18 08:35 Hydromorphone HCl (Dilaudid) 1 mg IVPUSH Q2H PRN PRN Reason: Pain (severe 7-10) Cefazolin Sodium/Dextrose 2 gm (/ Premix) 50 mls @ 100 mls/hr IV ONETIME ONE Stop: 12/13/18 05:55 Last Admin: 12/13/18 15:40 Dose: Not Given Ketorolac Tromethamine (Toradol) Confirm Administered Dose 30 mg .ROUTE .STK- MED ONE Stop: 12/13/18 08:39 Ketorolac Tromethamine (Toradol) 30 mg IVPUSH Q6H VALDO Stop: 12/14/18 08:46 Last Admin: 12/14/18 08:42 Dose: 30 mg Morphine Sulfate (Duramorph Pf) Confirm Administered Dose 10 mg .ROUTE .STK-MED ONE Stop: 12/13/18 07:28 Morphine Sulfate (Morphine) 8 mg IM ONETIME ONE Stop: 12/14/18 22:51 Nalbuphine HCl (Nubain) 2.5 mg IVPUSH Q3H PRN PRN Reason: Pruritis Stop: 12/14/18 07:55 Octyl Cyanoacrylate (Dermabond Advance) Confirm Administered Dose 1 applic .ROUTE .STK-MED ONE Stop: 12/13/18 07:34 Last Admin: 12/13/18 15:40 Dose: Not Given Ondansetron HCl (Zofran) Confirm Administered Dose 4 mg .ROUTE .STK-MED ONE Stop: 12/13/18 07:54 Oxytocin (Pitocin) Confirm Administered Dose 20 unit .ROUTE .STK-MED ONE Stop: 12/13/18 07:54 Phenylephrine HCl (Phenylephrine In Ns 100 Mcg/Ml) Confirm Administered Dose 1 mg .ROUTE .STK-MED ONE Stop: 12/13/18 07:54 - Exam General: Reports: Alert, Oriented HEENT: Reports: Pupils Equal, Pupils Reactive, EOMI, Mucous Membr. Moist/[place] Neck: Reports: Supple Lungs: Reports: Clear to Auscultation, Normal Respiratory Effort Cardiovascular: Reports: Regular Rate, Regular Rhythm GI/Abdominal Exam: Normal Bowel Sounds, Soft, Non-Tender, No Organomegaly, No Distention, No Abnormal Bruit, No Mass, Pelvis Stable (Female) Exam: Normal External Exam, Normal Speculum Exam, Normal Bimanual Exam Rectal (Female) Exam: Normal Exam, Normal Rectal Tone Back Exam: Reports: Normal Inspection, Full Range of Motion Extremities: Normal Inspection, Normal Range of Motion, Non-Tender, No Pedal Edema, Normal Capillary Refill Skin: Reports: Warm, Dry, Intact Wound/Incisions: Reports: Healing Well Neurological: Reports: No New Focal Deficit Psy/Mental Status: Reports: Alert, Normal Affect, Normal Mood
[2018-12-15] MEDS ORDERED: Ondansetron 4 MG Tab.DIS PO ONE (15:37)
[2018-12-15] MEDS: Acetaminophen 500 MG Tab PO PRN ×2 (17:28→23:25)
[2018-12-16] MEDS: Ibuprofen 800 MG Tab PO PRN ×2 (00:18→08:57)
[2018-12-16] MEDS: Acetaminophen 500 MG Tab PO PRN ×2 (07:14→13:34)
[2018-12-16 08:09] VITALS: BP 115/60; PULSE 82
[2018-12-16] MEDS: Docusate Sodium 100 MG Cap PO SCH (08:58)
--- NOTE | 2018-12-16 09:56 | PCM.PNPP ---
- General Info Date of Service: 12/16/18 Functional Status: Reports: Pain Controlled - Review of Systems General: Reports: No Symptoms HEENT: Reports: No Symptoms Pulmonary: Reports: No Symptoms Cardiovascular: Reports: No Symptoms Gastrointestinal: Reports: No Symptoms Genitourinary: Reports: No Symptoms Musculoskeletal: Reports: No Symptoms Skin: Reports: No Symptoms Neurological: Reports: No Symptoms Psychiatric: Reports: No Symptoms - General Info Date of Service: 12/16/18 - Patient Data Vital Signs - Most Recent: Last Vital Signs Temp 36.7 C 12/16/18 07:30 Pulse 82 12/16/18 07:30 Resp 18 12/16/18 07:30 BP 115/60 12/16/18 07:30 Pulse Ox 98 12/16/18 07:30 Weight - Most Recent: 90.265 kg Med Orders - Current: Current Medications Acetaminophen (Tylenol Extra Strength) 1,000 mg PO Q6H PRN PRN Reason: Pain Last Admin: 12/16/18 07:14 Dose: 1,000 mg Bisacodyl (Dulcolax) 10 mg RECTAL ONETIME PRN PRN Reason: Constipation Diphenhydramine HCl (Benadryl) 25 mg IVPUSH Q6H PRN PRN Reason: Itching or Nausea Last Admin: 12/13/18 12:40 Dose: 25 mg Docusate Sodium (Colace) 100 mg PO BID VALDO Last Admin: 12/16/18 08:58 Dose: 100 mg Emollient Ointment (Lansinoh Hpa) 0 gm TOP ASDIRECTED PRN PRN Reason: Sore Nipples Hydromorphone HCl (Dilaudid) 2 mg PO Q3H PRN PRN Reason: Pain (moderate 4-6) Last Admin: 12/15/18 08:21 Dose: 2 mg Hydromorphone HCl (Dilaudid) 1 mg IVPUSH Q2H PRN PRN Reason: Pain (severe 7-10) Last Admin: 12/14/18 05:23 Dose: 1 mg Lactated Ringer's (Ringers, Lactated) 1,000 mls @ 500 mls/hr IV BOLUS VALDO Last Admin: 12/13/18 08:00 Dose: 999 mls/hr Oxytocin/Sodium Chloride (Oxytocin 30 Unit/500 Ml-Ns) 30 unit in 500 mls @ 250 mls/hr IV TITRATE VALDO Lactated Ringer's (Ringers, Lactated) 1,000 mls @ 125 mls/hr IV ASDIRECTED [facility] Ibuprofen (Motrin) 800 mg PO Q8H PRN PRN Reason: mild pain or fever Last Admin: 12/16/18 08:57 Dose: 800 mg Ondansetron HCl (Zofran) 4 mg IVPUSH Q6H PRN PRN Reason: Nausea/Vomiting Last Admin: 12/14/18 05:17 Dose: 4 mg Oxycodone/Acetaminophen (Percocet 325-5 Mg) 1 tab PO ONETIME PRN PRN Reason: Pain (moderate 4-6) Sodium Chloride (Saline Flush) 10 ml FLUSH ASDIRECTED PRN PRN Reason: Keep Vein Open Sodium Chloride (Saline Flush) 2.5 ml FLUSH ASDIRECTED PRN PRN Reason: Keep Vein Open Sodium Chloride (Normal Saline) 10 ml IV ASDIRECTED PRN PRN Reason: IV Use Discontinued Medications Cefazolin Sodium/Dextrose (Ancef) Confirm Administered Dose 2 gm IV .STK-MED ONE Stop: 12/13/18 07:55 Citric Acid/Sodium Citrate (Bicitra Solution) 30 ml PO ONETIME ONE Stop: 12/13/18 05:27 Last Admin: 12/13/18 08:01 Dose: 30 ml Citric Acid/Sodium Citrate (Bicitra Solution) Confirm Administered Dose 30 ml .ROUTE .STK-MED ONE Stop: 12/13/18 07:59 Last Admin: 12/13/18 15:40 Dose: Not Given Fentanyl (Sublimaze) 50 mcg IVPUSH Q5M PRN PRN Reason: Pain (severe 7-10) Stop: 12/14/18 07:55 Last Admin: 12/13/18 09:09 Dose: 50 mcg Fentanyl (Sublimaze) Confirm Administered Dose 100 mcg .ROUTE .STK-MED ONE Stop: 12/13/18 08:35 Hydromorphone HCl (Dilaudid) 1 mg IVPUSH Q2H PRN PRN Reason: Pain (severe 7-10) Cefazolin Sodium/Dextrose 2 gm (/ Premix) 50 mls @ 100 mls/hr IV ONETIME ONE Stop: 12/13/18 05:55 Last Admin: 12/13/18 15:40 Dose: Not Given Ketorolac Tromethamine (Toradol) Confirm Administered Dose 30 mg .ROUTE .STK- MED ONE Stop: 12/13/18 08:39 Ketorolac Tromethamine (Toradol) 30 mg IVPUSH Q6H VALDO Stop: 12/14/18 08:46 Last Admin: 12/14/18 08:42 Dose: 30 mg Morphine Sulfate (Duramorph Pf) Confirm Administered Dose 10 mg .ROUTE .STK-MED ONE Stop: 12/13/18 07:28 Morphine Sulfate (Morphine) 8 mg IM ONETIME ONE Stop: 12/14/18 22:51 Nalbuphine HCl (Nubain) 2.5 mg IVPUSH Q3H PRN PRN Reason: Pruritis Stop: 12/14/18 07:55 Octyl Cyanoacrylate (Dermabond Advance) Confirm Administered Dose 1 applic .ROUTE .STK-MED ONE Stop: 12/13/18 07:34 Last Admin: 12/13/18 15:40 Dose: Not Given Ondansetron HCl (Zofran) Confirm Administered Dose 4 mg .ROUTE .STK-MED ONE Stop: 12/13/18 07:54 Ondansetron HCl (Zofran Odt) 4 mg PO ONETIME ONE Stop: 12/15/18 15:38 Last Admin: 12/15/18 15:50 Dose: 4 mg Oxytocin (Pitocin) Confirm Administered Dose 20 unit .ROUTE .STK-MED ONE Stop: 12/13/18 07:54 Phenylephrine HCl (Phenylephrine In Ns 100 Mcg/Ml) Confirm Administered Dose 1 mg .ROUTE .STK-MED ONE Stop: 12/13/18 07:54 - Interaction Disposition, : in Room with Family Interaction: Holding Infant Infant Feeding: Attempted ; Nursed Fair/Poor Support Person: - Recovery Exam Fundal Tone: Firm Fundal Level: 2 Fingerbreadths Below Umbilicus Fundal Placement: Midline Lochia Amount: Scant Lochia Color: Rubra/Red Perineum Description: Intact, Minimal Bruising/Swelling Episiotomy/Laceration: None Bladder Status: Voiding Urinary Elimination: Voided - Exam General: Alert, Oriented HEENT: Pupils Equal Neck: Supple Lungs: Clear to Auscultation, Normal Respiratory Effort Cardiovascular: Regular Rate, Regular Rhythm GI/Abdominal Exam: Normal Bowel Sounds, Soft, Non-Tender, No Organomegaly, No Distention, No Abnormal Bruit, No Mass, Pelvis Stable Extremities: Normal Inspection, Normal Range of Motion, Non-Tender, No Pedal Edema, Normal Capillary Refill Skin: Warm, Dry, Intact Wound/Incisions: Healing Well Neurological: No New Focal Deficit Psy/Mental Status: Alert, Normal Affect, Normal Mood - Problem List Review Problem List Initiated/Reviewed/Updated: Yes - My Orders Last 24 Hours: My Active Orders 12/15/18 09:43 Ready for Discharge [RC] PER UNIT ROUTINE 12/15/18 11:34 Acetaminophen [Tylenol Extra Strength] 1,000 mg PO Q6H PRN - Plan Plan:: Term admitted for elective repeat C/section.
== END 2018-12-16 14:00 | disposition home or self-care (01) | DRG 540 ==
LOC: MW.OB 05:14
PROVIDERS: ADMIT Obstetrics & Gynecology; ATTEND Obstetrics & Gynecology
PROC: 10D00Z1 Extraction of Products of Conception, Low, Open Approach (ICD-10-PCS; principal; 2018-12-13)
DX: O34.211 Maternal care for low transverse scar from previous cesarean delivery (principal); O99.52 Diseases of the respiratory system complicating childbirth; Z37.0 Single live birth; J45.909 Unspecified asthma, uncomplicated; Z88.5 Allergy status to narcotic agent; Z79.899 Other long term (current) drug therapy
CPT/HCPCS: 36415; 59025; 85014; 85018; 85027; 86850; 86900; 86901; A9270-GY; J0690; J1170; J1200; J1885; J2270; J2370; J2405; J2590; J3010; J7120